=== PATIENT | female | born 1965 | race African-American/Black ===

== ENCOUNTER 2020-02-09 10:21 | Emergency (ER) | payer MEDICAID ==
[~2020-02-09] VITALS: Ht 167.6 cm; Wt 72.0 kg
[~2020-02-09 10:21] MED LIST: CLAR10 PO; LISI-186 PO; PROM12.513 PO
[2020-02-09] MEDS ORDERED: HYDR12.54 PO (10:31)
[2020-02-09] MEDS ORDERED: LOSA50TA41 PO (10:31)
[2020-02-09] MEDS ORDERED: AMLO10TA80 PO (10:31)
[2020-02-09] MEDS ORDERED: CLONIDINE 0.1MG TABLET PO ONE (11:00)
[2020-02-09 11:11] LABS: BASOPHILS % 0.9 % (0.0-2.0); HEMATOCRIT. 43.2 % (36.0-48.0); HEMOGLOBIN. 14.3 g/dL (12.0-16.0); LYMPHOCYTES % 38.1 % (20.0-50.0); MEAN CORPUSCULAR HEMOGLOBIN 27.3 pg (28.0-32.0); MEAN CORPUSCULAR VOLUME 82.4 fL (81.0-99.0); MEAN PLATELET VOLUME 8.6 fl (7.4-10.4); MONOCYTES % 8.6 % (2.0-8.0); NEUTROPHILS % 49.4 % (40.0-76.0); PLATELET 211 x1000/uL (130-400); RED BLOOD CELL COUNT 5.25 mill/uL (4.2-5.4); RED CELL DISTRIBUTION WIDTH 15.6 % (11.6-14.6)
[2020-02-09 11:16] LABS: CHLORIDE 102 mEq/L (98-107)
[2020-02-09] MEDS ORDERED: LABETALOL 5MG/ML SYR 20 MG/4 ML SYRINGE IV ONE (11:45)
[2020-02-09] MEDS ORDERED: ASPIRIN 325MG EC TABLET PO ONE (12:00)
[2020-02-09 15:23] VITALS: BP 160/106
== END 2020-02-09 15:41 | disposition short-term general hospital (02) ==
LOC: ER 10:21 → EDBEDREQTM 11:52 → EDBEDREQSVC 11:52 → EDBEDREQ 11:52 → CANBEDREQ 15:33 → ER 15:41
DX: I10 Essential (primary) hypertension (principal); G45.9 Transient cerebral ischemic attack, unspecified; D64.9 Anemia, unspecified; F12.10 Cannabis abuse, uncomplicated; Z79.899 Other long term (current) drug therapy
CPT/HCPCS: 36415; 70450; 71045; 80053; 83880; 84484; 85025; 93005; 96374; 99285; J3490